=== PATIENT | male | born 1990 | race African-American/Black ===

== ENCOUNTER 2021-05-14 02:58 | Emergency (ER) | payer OTHER ==
[2021-05-14 03:11] VITALS: BP 118/64; PULSE 74; TEMP 98.2; BMI 20.9
[2021-05-14] MEDS ORDERED: ACETAMINOPHEN 500 MG TABLET (FP) PO ONE (03:40)
[2021-05-14] MEDS ORDERED: DIPHTH,PERTUSS(ACELL),TET 0.5 ML DISP.SYRIN IM ONE (03:40)
[2021-05-14] MEDS ORDERED: ACETAMINOPHEN 500 MG TABLET (FP) ONE (04:06)
== END 2021-05-14 04:28 | disposition home or self-care (01) ==
LOC: JER 02:58
PROC: 3E0234Z Introduction of Serum, Toxoid and Vaccine into Muscle, Percutaneous Approach (ICD-10-PCS; principal; 2021-05-14)
DX: R51.9 Headache, unspecified (principal); M54.2 Cervicalgia; V49.50XA Passenger injured in collision with unspecified motor vehicles in traffic accident, initial encounter
CPT/HCPCS: 70450-TC; 72125-TC; 73070-TC-LT-FY; 73562-TC-RT-FY; 73590-TC-RT-FY; 99285-25